=== PATIENT | male | born 2000 | race Caucasian/White ===

== ENCOUNTER 2020-05-06 22:23 | Emergency (ER) | payer MEDICARE, OTHER ==
[~2020-05-06] VITALS: Ht 175.3 cm; Wt 56.7 kg
[~2020-05-06 22:23] MED LIST: ALBU17AE26 INH
[2020-05-06 22:55] VITALS: BP_SYST 123
--- NOTE | 2020-05-06 23:20 | NUR ---
Pt ambulatory to bed 1 for evaluation
--- NOTE | 2020-05-06 23:34 | NUR ---
ER Dr. HEATH at bedside examining patient.
[2020-05-06] MEDS ORDERED: LIDOCAINE 1% 10 MG/ML, 20 ML MDV INJ ONE (23:45)
[2020-05-06] MEDS ORDERED: DIPH-TET-PERTUS Vaccine 0.5 ML VIAL (ADACEL) I.M. ONE (23:45)
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
--- NOTE | 2020-05-06 23:48 | NUR ---
LACERATION KIT SET UP AT BEDSIDE PER MD REQUEST.
--- NOTE | 2020-05-06 23:57 | NUR ---
DR. HEATH AT BEDSIDE PERFORMING LACERATION REPAIR.
--- NOTE | 2020-05-07 00:15 | NUR ---
Patient has a 6 cm laceration to RIGHT MID BACK. Dr. HEATH applied 12 sutures using sterile technique. Edges well approximated. Site cleansed with NORMAL SALINE AND IODINE. Dressing of STERILE DRY & BACITRACIN applied to site. No bleeding noted. Pt tolerated well. Addendum: 05/07/20 at 0031 by JACKSON NON ADHERENT DRESSING APPLIED.
[2020-05-07] MEDS ORDERED: BACITRACIN 1 GM OINT TP ONE ×2 (00:18→00:30)
[2020-05-07] MEDS ORDERED: BACEYEO OP (00:27)
[2020-05-07] MEDS ORDERED: BACI15OI27 TP (00:37)
[2020-05-07 00:40] VITALS: BP_SYST 121
--- NOTE | 2020-05-07 00:40 | NUR ---
Patient given written and verbal discharge instructions and verbalizes understanding. ER MD discussed with patient the results and treatment provided. Patient in stable condition. ID arm band removed. NO IV Rx of NEOSPORIN given. Patient educated on pain management and to follow up with PMD. Pain Scale 1/10. Opportunity for questions provided and answered. Medication side effect fact sheet provided.
== END 2020-05-07 00:40 | disposition home or self-care (01) ==
LOC: SED 22:23
DX: S21.91XA Laceration without foreign body of unspecified part of thorax, initial encounter (principal); F17.200 Nicotine dependence, unspecified, uncomplicated; J45.909 Unspecified asthma, uncomplicated; Y08.89XA Assault by other specified means, initial encounter; Y93.89 Activity, other specified; Y92.89 Other specified places as the place of occurrence of the external cause; Y99.8 Other external cause status
CPT/HCPCS: 12002; 90471; 90715; 99283; J2001